=== PATIENT | female | born 1955 | race Caucasian/White ===

== ENCOUNTER → 2017-03-25 | Outpatient (CLI) | payer BC | LOC: MC.RAD 10:47 | DX: Z12.31 Encounter for screening mammogram for malignant neoplasm of breast (principal) ==

== ENCOUNTER → 2018-06-21 | Outpatient (CLI) | payer BC | LOC: MC.RAD 11:18 | DX: Z12.31 Encounter for screening mammogram for malignant neoplasm of breast (principal) ==

== ENCOUNTER → 2019-07-25 | Outpatient (CLI) | payer BC | LOC: MC.RAD 13:25 | DX: Z12.31 Encounter for screening mammogram for malignant neoplasm of breast (principal) ==

== ENCOUNTER → 2020-07-29 | Outpatient (CLI) | payer BC | LOC: MC.RAD 09:22 | DX: Z12.31 Encounter for screening mammogram for malignant neoplasm of breast (principal) ==

== ENCOUNTER 2021-07-16 09:35 | Outpatient (CLI) | payer MEDICARE, BC ==
[~2021-07-16] VITALS: Ht 172.7 cm; Wt 54.6 kg
[2021-07-16] MEDS ORDERED: ZOCOR 40MG40 MG PO (09:59)
[2021-07-16] MEDS ORDERED: SYNTHROID0.1 MG/TAB PO (09:59)
[2021-07-16] MEDS ORDERED: CALCIUM 600MG+D1 TAB PO (10:00)
[2021-07-16 10:07] VITALS: BP 121/57; PULSE 91; TEMP 97.8
== END 2021-07-16 10:08 ==
LOC: EUO 09:35
DX: M81.0 Age-related osteoporosis without current pathological fracture (principal)
CPT/HCPCS: J0897

== ENCOUNTER → 2021-10-20 | Outpatient (CLI) | payer MEDICARE, BC ==
[~2021-10-20] MED LIST: CALCIUM 600MG+D1 TAB PO; SYNTHROID0.1 MG/TAB PO; ZOCOR 40MG40 MG PO
== END ==
LOC: MC.RAD 09:56
DX: Z12.31 Encounter for screening mammogram for malignant neoplasm of breast (principal)

== ENCOUNTER 2022-01-15 13:41 | Outpatient (CLI) | payer MEDICARE, BC ==
[~2022-01-15] VITALS: Ht 172.7 cm; Wt 55.0 kg
[2022-01-15] MEDS ORDERED: CELEXA40 MG PO (14:02)
[2022-01-15] MEDS ORDERED: NORCO 325 MG-51 TAB PO (14:02)
[2022-01-15] MEDS ORDERED: FIBERCON PO (14:03)
[2022-01-15] MEDS ORDERED: PROLIA60 MG/ML SQ (14:03)
[2022-01-15 14:04] VITALS: BP 122/62; PULSE 66; TEMP 98.4
--- NOTE | 2022-01-15 14:35 | NUR ---
Pt ambulated out from dept with steady gait. No concerns at time of departure.
== END 2022-01-15 14:35 | disposition home or self-care (01) ==
LOC: EUO 13:41
DX: M81.0 Age-related osteoporosis without current pathological fracture (principal)
CPT/HCPCS: J0897

== ENCOUNTER 2022-08-21 12:30 | Outpatient (CLI) | payer MEDICARE, BC ==
[~2022-08-21 12:30] MED LIST changes: +CELEXA 20MG20 MG/TAB PO; +FIBERCON PO; +NORCO 325 MG-51 TAB PO; +PROLIA60 MG/ML SQ; -SYNTHROID0.1 MG/TAB PO; +SYNTHROID0.125 MG/T PO
[2022-08-21 13:23] VITALS: BP 131/73; PULSE 66; TEMP 99.1
[2022-08-21] MEDS ORDERED: FIBERCON PO (13:29)
[2022-08-21] MEDS ORDERED: PROBIOTIC BLEN1 EACH PO (13:30)
--- NOTE | 2022-08-21 13:50 | NUR ---
Pt tolerated prolia injection without issue. She exits dept with steady gait.
== END 2022-08-21 13:50 | disposition home or self-care (01) ==
LOC: EUO 12:30
DX: M81.0 Age-related osteoporosis without current pathological fracture (principal)
CPT/HCPCS: J0897

== ENCOUNTER 2023-10-06 09:33 | Outpatient (CLI) | payer MEDICARE, BC ==
[~2023-10-06] VITALS: Ht 172.7 cm; Wt 52.0 kg
[~2023-10-06 09:33] MED LIST changes: +PROBIOTIC BLEN1 EACH PO; +SYNTHROID0.1 MG/TAB PO; -SYNTHROID0.125 MG/T PO; +WELLBUTRIN 75MG75 MG PO
[2023-10-06] MEDS ORDERED: Denosumab 60 MG/ML SYRINGE SQ ONE (10:00)
[2023-10-06 10:01] VITALS: BP 101/67; PULSE 75; TEMP 97.2
== END 2023-10-06 10:26 ==
LOC: EUO 09:33
DX: M81.0 Age-related osteoporosis without current pathological fracture (principal)
CPT/HCPCS: J0897